=== PATIENT | male | born 1955 | race Caucasian/White ===

== ENCOUNTER 2017-08-13 08:40 | Emergency (ER) | payer MEDICARE, OTHER ==
[~2017-08-13] VITALS: Wt 72.7 kg
[~2017-08-13 08:40] MED LIST: ATOR10TA65 PO; CYCL-319 PO; HYDR-762 PO; IBUP-1542 PO; LORA1TAB PO
[2017-08-13] MEDS ORDERED: KETOROLAC 30 MG INJ IV STA ×2 (09:19→10:53)
[2017-08-13] MEDS ORDERED: ONDANSETRON 4 MG INJ IV STA ×2 (09:19→11:07)
[2017-08-13] MEDS ORDERED: SOD CHLORIDE 0.9% 1,000 ML IV STA (09:19)
--- NOTE | 2017-08-13 09:39 | ERD ---
ER Documentation Chief Complaint Date/Time DATE: 08/13/17 TIME: 09:31 Chief Complaint back pain rad down r. side (HADLEY CORRAL PA-C) HPI 62-year-old male with a history of high cholesterol presents to the emergency department for complaints of sudden onset right-sided lower back pain which radiates to his groin since last night at 10:00. Patient states the pain has been constant gradually worsening and currently 10 out of 10 sharp pain. He denies any nausea, vomiting, diarrhea, hematuria, testicular swelling, fever, or chills. He is attempted to treat his symptoms with Motrin without relief. He reports one incident of prior kidney stone in the past. (HADLEY CORRAL PA-C) ROS All systems reviewed and are negative except as per history of present illness. (HADLYE CORRAL PA-C) Medications Home Meds Active Scripts Naproxen* (Naprosyn*) 500 Mg Tablet, 500 MG PO BID Y for PAIN AND/OR INFLAMMATION, #30 TAB Prov:HADLEY CORRAL PA-C 08/13/17 Diazepam* (Valium*) 5 Mg Tablet, 5 MG PO Q8, #10 TAB Prov:HADLEY CORRAL PA-C 08/13/17 Hydrocodone/Acetaminophen (Holcomb 5-325 Tablet) 1 Each Tablet, 1 TAB PO Q6H Y for PAIN, #20 TAB Prov:HADLEY CORRAL PA-C 08/13/17 Hydrocodone Bit-Acetaminophen* (Holcomb*) 10-325 Mg Tablet, 1 TAB PO Q6 Y for PAIN , #15 TAB Prov:JEFF NOYOLA PA-C 05/15/16 Ibuprofen* (Motrin*) 600 Mg Tab, 600 MG PO Q6H Y for PAIN AND OR ELEVATED TEMP, #30 TAB Prov:JEFF NOYOLA PA-C 05/15/16 Cyclobenzaprine Hcl* (Cyclobenzaprine Hcl*) 10 Mg Tablet, 10 MG PO TID, #20 TAB Prov:JEFF NOYOLA PA-C 05/15/16 Lorazepam* (Lorazepam*) 1 Mg Tablet, 1 MG PO Q8H Y for ANXIETY, #20 TAB Prov:CARA RODRIGUEZ 12/13/15 Reported Medications Atorvastatin Calcium (Atorvastatin Calcium) 10 Mg Tablet, 10 MG PO QHS, #30 TAB 12/13/15 Allergies Allergies: Coded Allergies: No Known Allergy (Unverified , 12/13/15) PMhx/Soc History of Surgery: No Anesthesia Reaction: No Hx Neurological Disorder: No Hx Respiratory Disorders: No Hx Cardiac Disorders: Yes (HIGH CHOLESTEROL, HTN) Hx Psychiatric Problems: No Hx Miscellaneous Medical Probl: Yes (Aortic aneurysm; kidney stones) Hx Alcohol Use: No Hx Substance Use: No Hx Tobacco Use: Yes (1/2 PACK A DAY FOR 30+ YEARS) Smoking Status: Current every day smoker (HADLEY CORRAL PA-C) Physical Exam Vitals Vital Signs Date Time Temp Pulse Resp B/P Pulse Ox O2 Delivery O2 Flow Rate FiO2 08/13/17 08:43 98.0 78 20 139/80 98 (JOAQUIM WILSON) Physical Exam Const: Well-developed, well-nourished, in moderate distress upon arrival Head: Atraumatic Eyes: Normal Conjunctiva ENT: Normal External Ears, Nose and Mouth. Neck: Full range of motion..~ No meningismus. Resp: Clear to auscultation bilaterally Cardio: Regular rate and rhythm, no murmurs Abd: Soft, non tender, non distended. Normal bowel sounds. Negative McBurney point tenderness. No rebound tenderness or peritoneal sign Skin: No petechiae or rashes Back: Moderate right-sided flank tenderness to palpation. No midline spinal tenderness. Ext: No cyanosis, or edema Neur: Awake and alert Psych: Normal Mood and Affect (HADLEY CORRAL PA-C) Result Diagram: 08/13/17 0932 08/13/17 0932 Results 24 hrs Laboratory Tests Test 08/13/17 09:32 White Blood Count 6.910^3/ul Red Blood Count 4.9210^6/ul Hemoglobin 15.5g/dl Hematocrit 46.4% Mean Corpuscular Volume 94.3fl Mean Corpuscular Hemoglobin 31.5pg Mean Corpuscular Hemoglobin Concent 33.4g/dl Red Cell Distribution Width 13.2% Platelet Count 47477^3/UL Mean Platelet Volume 10.0fl Neutrophils % 66.1% Lymphocytes % 19.8% Monocytes % 7.0% Eosinophils % 6.4% Basophils % 0.4% Nucleated Red Blood Cells % 0.0/100WBC Neutrophils # 4.510^3/ul Lymphocytes # 1.410^3/ul Monocytes # 0.510^3/ul Eosinophils # 0.410^3/ul Basophils # 0.010^3/ul Nucleated Red Blood Cells # 0.010^3/ul Sodium Level 142mmol/L Potassium Level 4.5mmol/L Chloride Level 106mmol/L Carbon Dioxide Level 28mmol/L Anion Gap 13 Blood Urea Nitrogen 10mg/dl Creatinine 0.80mg/dl Glucose Level 85mg/dl Calcium Level 9.6mg/dl Total Bilirubin 0.2mg/dl Direct Bilirubin 0.00mg/dl Indirect Bilirubin 0.2mg/dl Aspartate Amino Transf (AST/SGOT) 24IU/L Alanine Aminotransferase (ALT/SGPT) 22IU/L Alkaline Phosphatase 68IU/L Total Protein 7.2g/dl Albumin 4.4g/dl Globulin 2.80g/dl Albumin/Globulin Ratio 1.57 Lipase 49U/L Current Medications Medications (Trade) Dose Ordered Sig/Alda Route PRN Reason Start Time Stop Time Status Last Admin Dose Admin Sodium Chloride (NS) 1,000 ml @ 1,000 mls/hr Q1H STAT IV 08/13/17 09:19 08/13/17 10:18 DC 08/13/17 09:37 Ondansetron HCl (Zofran Inj) 4 mg ONCE STAT IV 08/13/17 09:19 08/13/17 09:20 DC 08/13/17 09:35 Ketorolac Tromethamine (Toradol) 30 mg ONCE STAT IV 08/13/17 09:19 08/13/17 09:20 DC 08/13/17 09:35 Ketorolac Tromethamine (Toradol) 30 mg ONCE STAT IV 08/13/17 10:53 08/13/17 11:08 DC 08/13/17 10:57 Morphine Sulfate (morphine) 4 mg ONCE STAT IV 08/13/17 11:07 08/13/17 11:08 DC 08/13/17 11:13 Ondansetron HCl (Zofran Inj) 4 mg ONCE STAT IV 08/13/17 11:07 08/13/17 11:08 DC 08/13/17 11:14 (JOAQUIM WILSON) Procedures/MDM 62-year-old male presents for sudden onset right-sided low back pain which radiates to his groin since last night. Upon arrival patient in obvious distress with right flank tenderness to palpation. There is otherwise nontoxic and well-nourished. Vital signs reviewed and within normal limits upon arrival. CBC showed no evidence of systemic infection or severe anemia. CMP showed no evidence of electrolyte abnormalities, severe acidosis, alkalosis , renal failure, or liver disease. Lipase showed no evidence of acute pancreatitis. UA showed no evidence of acute infection or hematuria. CT abdomen and pelvis With evidence of a 3.5 cm infrarenal abdominal aortic aneurysm. CT scan was performed without contrast however there is no evidence of hematoma or significant inflammation, and low suspicion of dissection or rupture.. No evidence of renal calculi, appendicitis, testicular torsion, bowel obstruction. History and physical exam consistent with right sided flank pain of unknown cause as well as abdominal aortic aneurysm without significant evidence of rupture or dissection which was found on CT imaging. Differential diagnosis includes but not limited to renal calculi, urinary tract infection, pyelonephritis, acute appendicitis, cholecystitis, cholangitis, pancreatitis, diverticulitis, partial bowel obstruction, testicular torsion, abdominal aortic aneurysm, mesenteric ischemia, lumbar strain. Patient symptoms significantly improved while in the emergency department and CT imaging results were compared with prior studies which showed mild, expected progression of the aortic aneurysm. Patient expressed agreement with plan for discharge with follow-up with vascular surgeon. Resources provided. Patient's pain is well controlled while in the emergency department he received a bolus of fluids. Based on patient's history of present illness and physical examination the decision was made to discharge. The patient was re-evaluated after ED treatment and stabilizing measures, and symptoms have improved. There is no evidence of life threatening injuries or illnesses at this time. On re-examination, patient resting in no distress, stable vital signs, reports feeling better and safe for discharge with outpatient follow up with PMD in 1-2 days. Patient given return precautions. (HADLYE CORRAL PA-C) Case was discussed in detail with the advanced practice provider. Patient was seen independently Diagnostic assessment reviewed. I agree with the assessment and care plan as discussed. Briefly, this patient appears to have back pain versus ureteral colic. CT scan demonstrated no significant kidney stones and lab tests demonstrate no high- risk concerns. Patient was noted to have an incidental finding of a 3.5 cm infra-aortic there is an. This was essentially unchanged from a year ago with no findings of rupture. At this time I doubt very much this is anything more than an incidental finding. He was made aware of this and agreed to follow-up as an outpatient (JOAQUIM WILSON) Departure Diagnosis: Primary Impression: Flank pain HADLEY CORRAL PA-C Aug 13, 2017 09:39 JOAQUIM WILSON Aug 13, 2017 11:39
[2017-08-13 09:48] LABS: BASOPHILS % 0.4 % (0.0-2.0); EOSINOPHILS # 0.4 10^3/ul (0.0-0.5); EOSINOPHILS % 6.4 % (0.0-7.0); HEMATOCRIT 46.4 % (42.0-52.0); HEMOGLOBIN 15.5 g/dl (14.0-18.0); LYMPHOCYTES # 1.4 10^3/ul (0.8-2.9); LYMPHOCYTES % 19.8 % (15.0-51.0); MEAN CORPUSCULAR HEMOGLOBIN 31.5 pg (29.0-33.0); MEAN CORPUSCULAR HGB CONC 33.4 g/dl (32.0-37.0); MEAN CORPUSCULAR VOLUME 94.3 fl (82.0-101.0); MONOCYTE # 0.5 10^3/ul (0.3-0.9); NEUTROPHIL # 4.5 10^3/ul (1.6-7.5); NEUTROPHILS % 66.1 % (39.0-77.0); PLATELET COUNT 221 10^3/UL (140-415); RED BLOOD COUNT 4.92 10^6/ul (4.70-6.10); RED CELL DISTRIBUTION WIDTH 13.2 % (11.5-14.5); WHITE BLOOD COUNT 6.9 10^3/ul (4.8-10.8)
[2017-08-13 10:18] LABS: ALBUMIN 4.4 g/dl (3.3-4.9); ALBUMIN/GLOBULIN RATIO 1.57; BILIRUBIN,INDIRECT 0.2 mg/dl (0-1.1); BILIRUBIN,TOTAL 0.2 mg/dl (0.2-1.3); CALCIUM 9.6 mg/dl (8.4-10.2); CREATININE 0.8 mg/dl (0.61-1.24); POTASSIUM 4.5 mmol/L (3.5-5.1); TOTAL PROTEIN 7.2 g/dl (6.1-8.1)
--- NOTE | 2017-08-13 10:55 | RADRPT ---
PROCEDURE: CT Abdomen and Pelvis without contrast. CLINICAL INDICATION: Right flank pain TECHNIQUE: CT of the abdomen and pelvis was performed on a multi-detector scanner without IV contr ast. Coronal and sagittal images were reformatted from the axial data set. One or more of the foll owing dose reduction techniques were used: automated exposure control, adjustment of the mA and/or k V according to patient size, use of iterative reconstruction technique. CTDI = 7.41 mGy. DLP = 445. 02 mGy-cm. COMPARISON: CT, 04/13/2015 FINDINGS: The lung bases are clear. The heart size is normal, without pericardial effusion. Liver, gallbladd er, biliary tree, pancreas, spleen, adrenal glands and kidneys are unremarkable. No urolithiasis or obstructive uropathy is identified. The stomach is grossly unremarkable. Infrarenal abdominal aortic aneurysm is identified, measuring 3.5 cm in maximal dimension (3-80), pr eviously 3.1 cm. Aortoiliac atherosclerotic calcifications are present. There is no retroperitoneal or joslyn hepatis lymphadenopathy. No bowel obstruction, free intraperitoneal air or abscess is identified. Scattered colonic diverticu la are seen without diverticulitis. The appendix is well visualized and normal. There is no colitis. Urinary bladder is grossly unremarkable. No pelvic mass, free fluid or lymphadenopathy is identifie d. The surrounding osseous structures are remarkable for degenerative enthesopathy of the spine. No os teolytic or osteoblastic lesion is detected. IMPRESSION: 1. 3.5 cm diameter infrarenal abdominal aortic aneurysm is identified, mildly increased in size whe n compared to the prior CT. Aortoiliac atherosclerotic calcifications are present. 2. No urolithiasis or obstructive uropathy is identified. 3. Scattered colonic diverticula are seen without diverticulitis. 4. No mass, lymphadenopathy, or focal acute inflammatory process is identified. RPTAT: AAQQ .Quentin Johansen MD, MD Date Time Electronically viewed and signed by .Quentin Johansen MD, MD on 08/13/2017 10:55 .R/
[2017-08-13] MEDS ORDERED: morphine 4 MG/ML VIAL IV STA (11:07)
[2017-08-13 12:27] LABS: ADD UMIC NO; UR ASCORBIC ACID NEGATIVE (NEGATIVE); UR BILIRUBIN (Dip) NEGATIVE (NEGATIVE); UR BLOOD (Dip) NEGATIVE (NEGATIVE); UR CLARITY CLEAR (CLEAR); UR COLOR STRAW (YELLOW); UR GLUCOSE (Dip) NEGATIVE (NEGATIVE); UR KETONES (Dip) NEGATIVE (NEGATIVE); UR LEUKOCYTE ESTERASE (Dip) NEGATIVE Leu/ul (NEGATIVE); UR NITRITE (Dip) NEGATIVE (NEGATIVE); UR SPECIFIC GRAVITY (Dip) 1.004 (1.003-1.030); UR TOTAL PROTEIN (Dip) NEGATIVE (NEGATIVE); UR UROBILINOGEN (Dip) NEGATIVE (NEGATIVE)
[2017-08-13] MEDS ORDERED: DIAZ-90 PO (12:55)
[2017-08-13] MEDS ORDERED: NAPR-260 PO (12:55)
[2017-08-13] MEDS ORDERED: HYDR-906 PO (12:55)
[2017-08-13 13:55] VITALS: BP 123/73; PULSE 62; RESP 17; TEMP 97.6
== END 2017-08-13 14:22 | disposition home or self-care (01) ==
LOC: FTE 08:40
DX: R10.9 Unspecified abdominal pain (principal); I10 Essential (primary) hypertension; F17.210 Nicotine dependence, cigarettes, uncomplicated
CPT/HCPCS: 36415; 74176; 80053; 81003; 83690; 85025; 96374; 96375; 96376; 99285; J1885; J2270; J2405; J7030

== ENCOUNTER 2017-12-27 09:40 | Emergency (ER) | END 2017-12-27 12:03 | disposition home or self-care (01) ==